=== PATIENT | female | born 1980 | race Caucasian/White ===

== ENCOUNTER 2021-05-24 07:23 | Emergency (ER) | payer OTHER ==
[~2021-05-24] VITALS: Ht 172.7 cm; Wt 63.5 kg
[~2021-05-24 07:23] MED LIST: ACET500 PO; ACYC400 PO; CITA20 PO; NAPR375 PO; TRAZ50 PO; [UNRECOGNIZED DRUG - OTHER]
[2021-05-24] MEDS ORDERED: Acyclovir800 MG PO (07:45)
== END 2021-05-24 08:35 | disposition home or self-care (01) ==
LOC: ER 07:23
DX: J02.9 Acute pharyngitis, unspecified (principal)
CPT/HCPCS: 99284

== ENCOUNTER 2021-05-26 16:11 | Emergency (ER) | payer OTHER ==
[~2021-05-26] VITALS: Ht 172.7 cm; Wt 63.5 kg
[~2021-05-26 16:11] MED LIST changes: +Acyclovir800 MG PO
== END 2021-05-26 17:50 | disposition home or self-care (01) ==
LOC: ER 16:11
DX: J30.9 Allergic rhinitis, unspecified (principal); Z20.822 Contact with and (suspected) exposure to COVID-19
CPT/HCPCS: 99284